=== PATIENT | male | born 1985 | race Two or more races ===

== ENCOUNTER 2018-03-19 07:18 | Inpatient (IN) | payer SELFPAY ==
[~2018-03-19 07:18] MED LIST: PROPOFOL 200 MG INJ
[2018-03-19] MEDS: SOD CHLORIDE 0.9% 500 ML IV (07:44)
[2018-03-19] MEDS: KETOROLAC 30 MG INJ IV (07:45)
[2018-03-19 07:55] LABS: ADD MAN DIFF? NO
[2018-03-19 07:59] LABS: WHITE BLOOD COUNT 8.7 10^3/ul (4.8-10.8)
[2018-03-19 08:00] LABS: BASOPHILS % 0.2 % (0.0-2.0); EOSINOPHILS # 0.1 10^3/ul (0.0-0.5); EOSINOPHILS % 1.3 % (0.0-7.0); HEMATOCRIT 42.4 % (42.0-52.0); HEMOGLOBIN 14.1 g/dl (14.0-18.0); LYMPHOCYTES # 1.8 10^3/ul (0.8-2.9); MEAN CORPUSCULAR HEMOGLOBIN 28.4 pg (29.0-33.0); MEAN CORPUSCULAR HGB CONC 33.3 g/dl (32.0-37.0); MEAN CORPUSCULAR VOLUME 85.3 fl (82.0-101.0); MEAN PLATELET VOLUME 9.1 fl (7.4-10.4); MONOCYTE # 0.8 10^3/ul (0.3-0.9); MONOCYTES % 8.6 % (0.0-11.0); NEUTROPHIL # 6.1 10^3/ul (1.6-7.5); NEUTROPHILS % 69.6 % (39.0-77.0); PLATELET COUNT 236 10^3/UL (140-415); RED BLOOD COUNT 4.97 10^6/ul (4.70-6.10); RED CELL DISTRIBUTION WIDTH 12.2 % (11.5-14.5)
[2018-03-19 08:25] LABS: Estimated GFR > 60 mL/min (>60)
[2018-03-19 08:33] LABS: ALANINE AMINOTRANSFERASE 27 IU/L (13-69); ALBUMIN 4.6 g/dl (3.3-4.9); ALKALINE PHOSPHATASE 64 IU/L (42-121); ANION GAP 8 (5-13); ASPARTATE AMINO TRANSFERASE 18 IU/L (15-46); BILIRUBIN,INDIRECT 0.4 mg/dl (0-1.1); BILIRUBIN,TOTAL 0.4 mg/dl (0.2-1.3); BLOOD UREA NITROGEN 12 mg/dl (7-20); CALCIUM 9.5 mg/dl (8.4-10.2); CARBON DIOXIDE 30 mmol/L (21-31); CHLORIDE 103 mmol/L (97-110); CREATININE 0.91 mg/dl (0.61-1.24); GLUCOSE 107 mg/dl (70-220); LIPASE 124 U/L (23-300); POTASSIUM 4.1 mmol/L (3.5-5.1); SODIUM 141 mmol/L (135-144); TOTAL PROTEIN 6.9 g/dl (6.1-8.1)
[2018-03-19] MEDS: morphine 2 MG INJ IV (08:43)
[2018-03-19] MEDS: ONDANSETRON 4 MG INJ IV ×2 (08:47→20:41)
[2018-03-19] MEDS: AMPICILLIN/SULB 3 GM/NS (PMX) 100 ML IVPB (09:12)
[2018-03-19] MEDS ORDERED: ONDANSETRON 4 MG INJ IV ×2 (10:00→11:30)
[2018-03-19] MEDS ORDERED: ACETAMINOPHEN 325 MG TAB PO ×2 (10:00→11:30)
[2018-03-19] MEDS ORDERED: NACL 0.9% 3 ML SYG IV (11:30)
[2018-03-19] MEDS: PIPER-TAZO 3.375 GM IV (PMX) 100 ML IVPB ×2 (12:08→17:39)
[2018-03-19] MEDS: SOD CHLORIDE 0.9% 1,000 ML IV ×2 (12:09→21:20)
[2018-03-19] MEDS ORDERED: MIDAZOLAM 1 MG/ML 2 ML INJ (19:35)
[2018-03-19] MEDS ORDERED: LIDOCAINE 2% (SDV) 5 ML INJ (19:35)
[2018-03-19] MEDS ORDERED: ROCURONIUM 50 MG INJ (19:35)
[2018-03-19] MEDS ORDERED: FENTAnyl 50 MCG/ML VIAL (19:35)
[2018-03-19] MEDS ORDERED: SUCCINYLCHOLINE CHLORIDE 100 MG/5 ML SYG IV (19:35)
[2018-03-19] MEDS ORDERED: ROPIVACAINE 0.5 % 30 ML VIAL (19:50)
[2018-03-19] MEDS ORDERED: CEFAZOLIN 1 GM INJ (19:56)
[2018-03-19] MEDS ORDERED: ONDANSETRON 4 MG INJ (20:07)
[2018-03-19] MEDS: BUPIVACAINE 0.25%/EPI (MDV) 50 ML VIAL INJ (20:11)
[2018-03-19] MEDS ORDERED: GLYCOPYRROLATE 0.4 MG INJ ×2 (20:20→20:21)
[2018-03-19] MEDS ORDERED: NEOSTIGMINE 3 MG/3 ML SYRINGE (20:20)
[2018-03-19] MEDS ORDERED: morphine 2 MG INJ IV (20:30)
[2018-03-19] MEDS ORDERED: HYDROmorphONE 1 MG/5 ML IV SYRINGE IV ×2 (20:38→21:00)
[2018-03-19] MEDS: HYDROmorphONE 1 MG/5 ML IV SYRINGE IV ×3 (20:41→21:19)
[2018-03-19] MEDS: OXYCODONE/ACETAMINOPHEN (5/325) TAB PO (22:10)
[2018-03-20] MEDS: morphine 2 MG INJ IV ×2 (00:12→04:19)
[2018-03-20] MEDS: PIPER-TAZO 3.375 GM IV (PMX) 100 ML IVPB ×3 (00:12→12:00)
[2018-03-20] MEDS: SOD CHLORIDE 0.9% 1,000 ML IV (03:18)
[2018-03-20 07:30] LABS: ADD MAN DIFF? NO
[2018-03-20 07:33] LABS: BASOPHILS % 0.3 % (0.0-2.0); EOSINOPHILS # 0.1 10^3/ul (0.0-0.5); EOSINOPHILS % 1.6 % (0.0-7.0); HEMATOCRIT 40.8 % (42.0-52.0); HEMOGLOBIN 13.4 g/dl (14.0-18.0); LYMPHOCYTES # 1.5 10^3/ul (0.8-2.9); LYMPHOCYTES % 22.7 % (15.0-51.0); MEAN CORPUSCULAR HEMOGLOBIN 28.6 pg (29.0-33.0); MEAN CORPUSCULAR HGB CONC 32.8 g/dl (32.0-37.0); MEAN CORPUSCULAR VOLUME 87.2 fl (82.0-101.0); MONOCYTE # 0.5 10^3/ul (0.3-0.9); NEUTROPHIL # 4.5 10^3/ul (1.6-7.5); NEUTROPHILS % 67.1 % (39.0-77.0); PLATELET COUNT 213 10^3/UL (140-415); RED BLOOD COUNT 4.68 10^6/ul (4.70-6.10)
[2018-03-20 07:33] LABS: WHITE BLOOD COUNT 6.7 10^3/ul (4.8-10.8)
[2018-03-20 08:00] LABS: ALANINE AMINOTRANSFERASE 25 IU/L (13-69); ALBUMIN 4.1 g/dl (3.3-4.9); ALBUMIN/GLOBULIN RATIO 1.78; ALKALINE PHOSPHATASE 56 IU/L (42-121); ANION GAP 6 (5-13); ASPARTATE AMINO TRANSFERASE 18 IU/L (15-46); BILIRUBIN,INDIRECT 0.6 mg/dl (0-1.1); BILIRUBIN,TOTAL 0.6 mg/dl (0.2-1.3); BLOOD UREA NITROGEN 10 mg/dl (7-20); CALCIUM 9.3 mg/dl (8.4-10.2); CARBON DIOXIDE 32 mmol/L (21-31); CHLORIDE 103 mmol/L (97-110); CREATININE 0.99 mg/dl (0.61-1.24); Estimated GFR > 60 mL/min (>60); GLUCOSE 89 mg/dl (70-220); PHOSPHORUS 4.5 mg/dl (2.5-4.9); SODIUM 141 mmol/L (135-144); TOTAL PROTEIN 6.4 g/dl (6.1-8.1)
[2018-03-20] MEDS: OXYCODONE/ACETAMINOPHEN (5/325) TAB PO (09:26)
== END 2018-03-20 13:35 | disposition home or self-care (01) | DRG 343 ==
LOC: FTE 07:18 → 2NE 09:43
PROC: 0DTJ4ZZ Resection of Appendix, Percutaneous Endoscopic Approach (ICD-10-PCS; principal; 2018-03-19 17:00)
DX: K35.30 Acute appendicitis with localized peritonitis, without perforation or gangrene (principal)
CPT/HCPCS: 36415; 74176; 80053; 83690; 83735; 84100; 85025; 88304; 90686; 96361; 96374; 96375; 99285-25

== ENCOUNTER 2018-07-10 07:20 | Emergency (ER) | payer MEDICAID ==
[2018-07-10] MEDS: KETOROLAC 30 MG INJ IM (09:43)
[2018-07-10] MEDS: METHOCARBAMOL 750 MG TAB PO (09:43)
[2018-07-10 09:53] LABS: ADD MAN DIFF? NO
[2018-07-10 10:10] LABS: EOSINOPHILS % 0.6 % (0.0-7.0); HEMOGLOBIN 15.6 g/dl (14.0-18.0); LYMPHOCYTES % 25.2 % (15.0-51.0); MEAN CORPUSCULAR HEMOGLOBIN 28.1 pg (29.0-33.0); MEAN CORPUSCULAR HGB CONC 33.2 g/dl (32.0-37.0); MEAN CORPUSCULAR VOLUME 84.5 fl (82.0-101.0); MEAN PLATELET VOLUME 9.1 fl (7.4-10.4); MONOCYTES % 8.8 % (0.0-11.0); NEUTROPHILS % 64.4 % (39.0-77.0); PLATELET COUNT 238 10^3/UL (140-415); RED BLOOD COUNT 5.56 10^6/ul (4.70-6.10); RED CELL DISTRIBUTION WIDTH 12.3 % (11.5-14.5)
[2018-07-10 10:10] LABS: WHITE BLOOD COUNT 5.4 10^3/ul (4.8-10.8)
[2018-07-10 10:11] LABS: BASOPHILS % 0.4 % (0.0-2.0); LYMPHOCYTES # 1.4 10^3/ul (0.8-2.9); MONOCYTE # 0.5 10^3/ul (0.3-0.9); NEUTROPHIL # 3.5 10^3/ul (1.6-7.5)
[2018-07-10 10:18] LABS: ALANINE AMINOTRANSFERASE 17 IU/L (13-69); ALBUMIN 4.8 g/dl (3.3-4.9); ALKALINE PHOSPHATASE 86 IU/L (42-121); ANION GAP 7 (5-13); ASPARTATE AMINO TRANSFERASE 19 IU/L (15-46); BILIRUBIN,INDIRECT 0.4 mg/dl (0-1.1); BILIRUBIN,TOTAL 0.4 mg/dl (0.2-1.3); BLOOD UREA NITROGEN 15 mg/dl (7-20); CALCIUM 10.2 mg/dl (8.4-10.2); CARBON DIOXIDE 32 mmol/L (21-31); CHLORIDE 103 mmol/L (97-110); CREATININE 0.95 mg/dl (0.61-1.24); Estimated GFR > 60 mL/min (>60); GLUCOSE 95 mg/dl (70-220); POTASSIUM 4.6 mmol/L (3.5-5.1); SODIUM 142 mmol/L (135-144); TOTAL PROTEIN 7.8 g/dl (6.1-8.1)
== END 2018-07-10 12:39 | disposition home or self-care (01) ==
LOC: FTE 07:20
DX: R51 Headache (principal)
CPT/HCPCS: 80053; 85025; 96372; 99284-25

== ENCOUNTER 2018-12-30 12:09 | Emergency (ER) | payer MEDICAID ==
[2018-12-30] MEDS: LORAZEPAM 1 MG TAB PO (12:49)
[2018-12-30] MEDS: SOD CHLORIDE 0.9% 500 ML IV ×2 (12:50→14:18)
[2018-12-30 12:56] LABS: ADD MAN DIFF? NO
[2018-12-30 12:59] LABS: WHITE BLOOD COUNT 19.4 10^3/ul (4.8-10.8)
[2018-12-30 12:59] LABS: BASOPHILS % 0.2 % (0.0-2.0); HEMATOCRIT 45.5 % (42.0-52.0); HEMOGLOBIN 15.6 g/dl (14.0-18.0); MEAN CORPUSCULAR HEMOGLOBIN 28.5 pg (29.0-33.0); MEAN CORPUSCULAR HGB CONC 34.3 g/dl (32.0-37.0); MEAN PLATELET VOLUME 8.9 fl (7.4-10.4); MONOCYTES % 5.2 % (0.0-11.0); NEUTROPHIL # 17.3 10^3/ul (1.6-7.5); NEUTROPHILS % 89.1 % (39.0-77.0); PLATELET COUNT 252 10^3/UL (140-415); RED BLOOD COUNT 5.48 10^6/ul (4.70-6.10); RED CELL DISTRIBUTION WIDTH 11.8 % (11.5-14.5)
[2018-12-30 13:15] LABS: ANION GAP 13 (5-13); BLOOD UREA NITROGEN 13 mg/dl (7-20); CARBON DIOXIDE 27 mmol/L (21-31); CHLORIDE 96 mmol/L (97-110); CREATININE 0.83 mg/dl (0.61-1.24); Estimated GFR > 60 mL/min (>60); GLUCOSE 117 mg/dl (70-220); POTASSIUM 3.9 mmol/L (3.5-5.1); SODIUM 136 mmol/L (135-144)
[2018-12-30 13:35] LABS: ADD UMIC NO; UR ASCORBIC ACID NEGATIVE (NEGATIVE); UR BILIRUBIN (Dip) NEGATIVE (NEGATIVE); UR BLOOD (Dip) NEGATIVE (NEGATIVE); UR CLARITY SLIGHTLY CLOUDY (CLEAR); UR COLOR YELLOW (YELLOW); UR GLUCOSE (Dip) NEGATIVE (NEGATIVE); UR KETONES (Dip) 1+ mg/dL (NEGATIVE); UR LEUKOCYTE ESTERASE (Dip) NEGATIVE Leu/ul (NEGATIVE); UR MUCUS FEW /HPF (NONE SEEN); UR NITRITE (Dip) NEGATIVE (NEGATIVE); UR RBC 3 /HPF (0-5); UR SPECIFIC GRAVITY (Dip) 1.019 (1.003-1.030); UR TOTAL PROTEIN (Dip) NEGATIVE (NEGATIVE); UR UROBILINOGEN (Dip) NEGATIVE (NEGATIVE); UR WBC 2 /HPF (0-5)
[2018-12-30] MEDS: HYDROCODONE/APAP (5/325) TAB PO (13:50)
[2018-12-30] MEDS: IBUPROFEN 200 MG TAB PO (13:50)
[2018-12-30 13:53] LABS: AMPHETAMINE/METHAMPHETAMINE Negative (NEGATIVE); BARBITURATES Negative (NEGATIVE); BENZODIAZEPINES Negative (NEGATIVE); CANNABINOIDS Negative (NEGATIVE); OPIATES Negative (NEGATIVE)
[2018-12-30 13:54] LABS: COCAINE Positive (NEGATIVE)
[2018-12-30 14:42] LABS: TROPONIN-I < 0.012 ng/ml (0.000-0.120)
== END 2018-12-30 14:55 | disposition home or self-care (01) ==
LOC: FTE 14:55
DX: F41.9 Anxiety disorder, unspecified (principal)
CPT/HCPCS: 80048; 80307; 81001; 81003; 84484; 85025; 93005; 96360; 99284-25